=== PATIENT | female | born 1950 ===

== ENCOUNTER → 2017-11-16 | Outpatient (CLI) | payer MEDICARE, BC ==
[~2017-11-16] MED LIST: ALBU90OI INH; AMLO5 PO; AZIT250 PO; CALTRATE; CHOL10002 PO; FISH1000 PO; FLUT220OIA; GEMF600; HYDMOR2; HYDR1TAB94 PO; LORA10 PO; LOSA50 PO; LOSARTAN POTAS100 MG PO; LOVA20 PO; LOVA40 PO; MEDR10; MULVITMINF; NAPR375 PO; OMEP20ER PO; OSEL75CA; OSEL75CA PO; PRED20 PO
== END ==
LOC: LAB 16:10 → LAB SHORT 16:10
DX: E11.9 Type 2 diabetes mellitus without complications (principal)
CPT/HCPCS: 82043

== ENCOUNTER 2019-03-23 05:53 | Day surgery (SDC) | payer MEDICARE, BC ==
[~2019-03-23] VITALS: Ht 152.4 cm; Wt 78.3 kg
[~2019-03-23 05:53] MED LIST changes: +ACET500 PO; +ATOR80 PO; +CENTRUM SILVER1 EAC2 PO; +Diclofenac Sod2.5 ML TOP; +FISH OIL 1,0001 EAC1 PO; -FISH1000 PO; +Loratadine10 MG PO; +METF500 PO; -MULVITMINF; +VIT1CAPS12 PO
--- NOTE | 2019-03-23 06:42 | NUR ---
PT ADMITTED TO [facility]. AGREES WITH PLANNED SURGERY. LUNG SOUNDS CLEAR. PT CONFIRMS 5 DAYS OF CHLORAHEXADINE SHOWER AND NOSE SWAB.
--- NOTE | 2019-03-23 06:50 | NUR ---
NOZIN TO NARE BILATERALLY.
--- NOTE | 2019-03-23 08:33 | NUR ---
03/23/19 0833 Alonso Toth SPINAL ATTEMPTED PER DR. GAXIOLA W/O SUCCESS. GENERAL ANESTHESIA USED FOR PROCEDURE.
--- NOTE | 2019-03-23 17:54 | NUR ---
HAYES HAS HAD DIFFICULTIES WITH N/V. ALL THREE OF HER ANTIEMETICS WERE GIVEN, SHE HAS BEEN SOMNOLENT BUT AROUSEABLE SINCE THE ADMINISTRATION OF PHENERGAN. INCENTIVE SPIROMETER GIVEN, EDUCATED ON USE AND HAYES DEMONSTRATED USE. AT BEDSIDE WHO IS ATTENTIVE AND HELPFUL. ATTEMPTED TO WEAN HER OFF OF O2 X 3, SATS DROPPED TO 80'S. O2 AT 2 LPM VIA NASAL CANNULA. RAHEL, PAS AND POLAR PACK IN PLACE. SPOT CHECKED BLOOD SUGAR DUE TO EMESIS, 130. PAIN 2/10. SITTING COMFORTABLY IN CHAIR WITH CALL LIGHT IN REACH.
[2019-03-24 04:08] LABS: BASOPHILS ABSOLUTE AUTO 0.03 K/mm3 (0.00-0.23); BASOPHILS PERCENT AUTO 0 % (0-2); EOSINOPHILS ABSOLUTE AUTO 0.09 K/mm3 (0.00-0.68); EOSINOPHILS PERCENT AUTO 1 % (0-6); Hematocrit 32.3 % (33.0-51.0); Hemoglobin 10.2 g/dL (11.5-16.0); IMMATURE GRAN ABSOLUTE AUTO 0.01 K/mm3 (0.00-0.10); IMMATURE GRAN PERCENT AUTO 0 % (0-1); LYMPHOCYTES ABSOLUTE AUTO 1.32 K/mm3 (0.84-5.20); LYMPHOCYTES PERCENT AUTO 20 % (21-46); MONOCYTES ABSOLUTE AUTO 0.61 K/mm3 (0.16-1.47); MONOCYTES PERCENT AUTO 9 % (4-13); Mean Corpuscular HGB Conc 31.6 g/dL (31.5-36.5); Mean Platelet Volume 10.5 fL (9.1-12.4); NEUTROPHILS ABSOLUTE AUTO 4.67 K/mm3 (1.96-9.15); NEUTROPHILS PERCENT AUTO 70 % (41-73); Platelet Count 190 K/mm3 (150-400); RDW Coefficient Variation 12.9 % (11.7-14.2); RDW Standard Deviation 45.9 fL (35.1-46.3); Red Blood Cell Count 3.29 M/mm3 (3.80-5.20); White Blood Cell Count 6.73 K/mm3 (4.00-11.30)
[2019-03-24 04:09] LABS: Mean Corpuscular Volume 98 fL (80-100)
[2019-03-24 04:36] LABS: Anion Gap 5 mmol/L (6-16); Blood Urea Nitrogen 20 mg/dL (8-24); Bun/Creatinine Ratio 24.2 (12.0-20.0); CO2, Blood 29 mmol/L (21-32); Calcium, Blood 7.8 mg/dL (8.5-10.1); Chloride, Blood 106 mmol/L (98-108); Creatinine, Blood 0.83 mg/dL (0.40-1.00); Glomerular Filtration Rate >60 (60-); Glucose, Blood 149 mg/dL (70-99); Magnesium, Blood 1.9 mg/dL (1.6-2.4); Potassium, Blood 4.1 mmol/L (3.5-5.5); Sodium, Blood 140 mmol/L (136-145)
--- NOTE | 2019-03-24 06:20 | NUR ---
PT HAS BEEN STABLE THIS SHIFT. PAIN CONTROLLED WITH PRN AND SCHEDULED MEDS. PT UP WITH MIN ASSIST TO AMBULATE AND SIT IN CHAIR. PT VOIDING WELL, SL IV. PT HAS HAD NO FURTHER NAUSEA/EMESIS. WEANED TO RA. PAS/TEDS/POLAR PACK IN PLACE. SOCORRO WRAP CDI. PLAN TO DC HOME AFTER WORKS WITH THERAPY. USES CALL LIGHT APPROPRIATELY.
[2019-03-24] MEDS ORDERED: ASPI325 PO (10:10)
[2019-03-24] MEDS ORDERED: ROXICODONE5 MG PO (10:11)
[2019-03-24] MEDS ORDERED: PROM25 PO (10:11)
--- NOTE | 2019-03-24 14:55 | NUR ---
Patient up to Ambulate independently. Gait steady. Discharge instructions reviewed with patient. Patient verbalizes understanding. Copy given to patient to take home. Dressing to procedure site clean, dry, intact with no visible drainage, swelling, erythema or bruising noted. Patient States Post-Procedure ride home has been arranged. Discharged via wheelchair to private car for ride home. Prescription for antibiotic sent with pt. IV D/C'd. All personal belonging sent home with pt.
== END 2019-03-24 15:01 | disposition home or self-care (01) ==
LOC: ORSCMMR 05:53 → ORD 07:30 → SURS 11:39 → ORSCMMR 03-24 15:01
PROVIDERS: Orthopaedic Surgery
PROC: 8E0YXBZ Computer Assisted Procedure of Lower Extremity (ICD-10-PCS; principal; 2019-03-23 07:30)
PROC: 0SRD0J9 Replacement of Left Knee Joint with Synthetic Substitute, Cemented, Open Approach (ICD-10-PCS; principal; 2019-03-23 07:30)
DX: M17.12 Unilateral primary osteoarthritis, left knee (principal); I10 Essential (primary) hypertension; E11.9 Type 2 diabetes mellitus without complications; J45.909 Unspecified asthma, uncomplicated; E66.9 Obesity, unspecified; Z68.33 Body mass index [BMI] 33.0-33.9, adult; Z79.899 Other long term (current) drug therapy
CPT/HCPCS: 36415; 73560-LT; 80048; 82947; 83735; 85025; 88300; 97110; 97116; 97162; 97530; C1713; C1776; J0171; J0735; J1885; J2250; J2370; J2405; J2550; J2704; J2765; J2795; J3010; J3370; J7120

== ENCOUNTER 2021-09-11 16:27 | Observation (INO) | payer MEDICARE, BC ==
[~2021-09-11] VITALS: Ht 154.9 cm; Wt 82.2 kg
[~2021-09-11 16:27] MED LIST changes: +ASPI325 PO; +PROM25 PO; +ROXICODONE5 MG PO
[2021-09-11] MEDS ORDERED: ZYRTEC10 M2 PO (16:51)
[2021-09-11 17:06] LABS: BASOPHILS ABSOLUTE AUTO 0.07 K/mm3 (0.00-0.23); BASOPHILS PERCENT AUTO 1 % (0-2); EOSINOPHILS ABSOLUTE AUTO 0.16 K/mm3 (0.00-0.68); EOSINOPHILS PERCENT AUTO 2 % (0-6); Hematocrit 30.2 % (33.0-51.0); Hemoglobin 8.7 g/dL (11.5-16.0); IMMATURE GRAN ABSOLUTE AUTO 0.02 K/mm3 (0.00-0.10); IMMATURE GRAN PERCENT AUTO 0 % (0-1); LYMPHOCYTES ABSOLUTE AUTO 3.07 K/mm3 (0.84-5.20); LYMPHOCYTES PERCENT AUTO 38 % (21-46); MONOCYTES PERCENT AUTO 10 % (4-13); Mean Corpuscular HGB 23.4 pg (26.0-34.0); Mean Corpuscular HGB Conc 28.8 g/dL (31.5-36.5); Mean Corpuscular Volume 81 fL (80-100); Mean Platelet Volume 10.5 fL (9.1-12.4); NEUTROPHILS ABSOLUTE AUTO 3.94 K/mm3 (1.96-9.15); NEUTROPHILS PERCENT AUTO 49 % (41-73); Platelet Count 332 K/mm3 (150-400); RDW Coefficient Variation 18.3 % (11.7-14.2); RDW Standard Deviation 53.7 fL (35.1-46.3); Red Blood Cell Count 3.72 M/mm3 (3.80-5.20); White Blood Cell Count 8.06 K/mm3 (4.00-11.30)
[2021-09-11 17:23] LABS: International Normalized Ratio 0.96; Prothrombin Time Results 10.1 Sec (9.7-11.5)
[2021-09-11 17:28] LABS: Alanine Aminotransfer (ALT/SGP 34 U/L (12-78); Albumin, Blood 3.8 g/dL (3.4-5.0); Albumin/Globulin Ratio 1.1 (0.8-1.8); Alk Phos 106 U/L (50-136); Anion Gap 7 mmol/L (6-16); Aspartate Aminotrans (AST/SGOT 27 U/L (12-37); Bilirubin, Total 1.3 mg/dL (0.1-1.0); Blood Urea Nitrogen 18 mg/dL (8-24); Bun/Creatinine Ratio 23.9 (12.0-20.0); CO2, Blood 24 mmol/L (21-32); Chloride, Blood 107 mmol/L (98-108); Creatinine, Blood 0.75 mg/dL (0.40-1.00); Globulin, Blood 3.4 g/dL (2.2-4.0); Glomerular Filtration Rate >60 (60-); Glucose, Blood 149 mg/dL (70-99); Potassium, Blood 3.9 mmol/L (3.5-5.5); Sodium, Blood 138 mmol/L (136-145); Total Protein, Blood 7.2 g/dL (6.4-8.2)
[2021-09-11 21:35] LABS: CHOL/HDL RATIO 1.8; Cholesterol 117 mg/dL (50-200); HDL Cholesterol 66 mg/dL (>39); LDL/HDL RATIO 0.6; Low Density Lipoprotein Chol 38 mg/dL (0-110); Triglycerides 66 mg/dL (30-160); Very Low Density Lipoprot Chol 13 mg/dL (6-32)
[2021-09-11 22:45] LABS: Percent Saturation 4.1 % (15.0-50.0)
--- NOTE | 2021-09-11 23:33 | NUR ---
PATIENT IS A NEW ADMIT FROM THE ED. SELF TRANSFER FROM [facility] TO BED. AXOX 4 AND INDEPENDENT IN ROOM. ON ROOM AIR. DENIES CHEST PAIN, SOB, AND N/V. REPORTS RIGHT EYE: UPPER LEFT FIELD OF VIEW VISION LOSS. NO OTHER DEFICIT NOTED. REPORT SHE DOES AEROBIC SWIMMING TWICE A WEEK AND SPOUSE DOES CARDIO AND LIFTS WEIGHTS. ORIENTED TO ROOM AND CALL LIGHT SYSTEM. SPOUSE CALLED TO CHECK IN AFTER LEAVING ED. PATIENT REPORTS SHE WANTS TO SLEEP AFTER ASSESSMENT. WARM BLANKET PROVIDED. CALL LIGHT IN REACH.
--- NOTE | 2021-09-12 03:15 | NUR ---
SHIFT SUMMARY PATIENT HAD NO ACUTE CHANGES OBSERVED. AXOX 4 AND INDEPENDENT IN ROOM. VSS/AFEBRILE. DENIES PAIN, SOB AND N/V. PIV REMAINS INTACT. MRI FORM FILLED OUT BY ED RN FOR MRI TODAY. RIGHT EYE VISION DEFICIT REMAINED THE SAME. NO OTHER NEURO CHANGES NOTED. COOPERATIVE WITH CARE. CALL LIGHT IN REACH. BED IN LOWEST POSITION. WILL CONTINUE TO MONITOR UNTIL DAY SHIFT NURSE ASSUMES CARE.
[2021-09-12 05:52] LABS: BASOPHILS ABSOLUTE AUTO 0.04 K/mm3 (0.00-0.23); BASOPHILS PERCENT AUTO 1 % (0-2); EOSINOPHILS ABSOLUTE AUTO 0.17 K/mm3 (0.00-0.68); EOSINOPHILS PERCENT AUTO 4 % (0-6); Hematocrit 28.7 % (33.0-51.0); Hemoglobin 8.3 g/dL (11.5-16.0); IMMATURE GRAN ABSOLUTE AUTO 0.01 K/mm3 (0.00-0.10); IMMATURE GRAN PERCENT AUTO 0 % (0-1); LYMPHOCYTES ABSOLUTE AUTO 1.86 K/mm3 (0.84-5.20); LYMPHOCYTES PERCENT AUTO 41 % (21-46); MONOCYTES ABSOLUTE AUTO 0.51 K/mm3 (0.16-1.47); MONOCYTES PERCENT AUTO 11 % (4-13); Mean Corpuscular HGB 23.4 pg (26.0-34.0); Mean Corpuscular HGB Conc 28.9 g/dL (31.5-36.5); Mean Corpuscular Volume 81 fL (80-100); Mean Platelet Volume 10.8 fL (9.1-12.4); NEUTROPHILS ABSOLUTE AUTO 1.92 K/mm3 (1.96-9.15); NEUTROPHILS PERCENT AUTO 43 % (41-73); Platelet Count 329 K/mm3 (150-400); RDW Coefficient Variation 18.1 % (11.7-14.2); Red Blood Cell Count 3.55 M/mm3 (3.80-5.20); White Blood Cell Count 4.51 K/mm3 (4.00-11.30)
--- NOTE | 2021-09-12 14:50 | NUR ---
[facility]ED [facility]- PT HAS DISCHARGE ORDERS, HAS ORDERED A ZIOPATCH FOR 15 DAYS. THEY ARE AWARE OF THE ORDER AND WILL SEND SOMEONE TO PLACE THE PATCH.
[2021-09-12] MEDS ORDERED: CLOP75 PO (15:51)
[2021-09-12] MEDS ORDERED: PANT20 PO (15:55)
--- NOTE | 2021-09-12 16:28 | NUR ---
SHIFT/DISCHARGE NOTE MS JENKINS HAS BEEN INDEPENDENT TODAY, WALKING LAPS AROUND THE UNIT WITH HER . ORIENTATEDX4, NO CONFUSION. VISION UNCHANGED WITH MONTES BLURRED VISUAL AREA TO LEFT UPPER ASPECT OF VISUAL FIELD FROM RIGHT EYE. HAS CHRONIC TRIGGER FINGER ISSUES ON RIGHT HAND, SLIGHT WEAKNESS IN HER RIGHT HAND IS CHRONIC. SHE IS AWAITING A RIGHT KNEE REPLACEMENT SO SLIGHT WEAKNESS TO RIGHT LEG IS CHRONIC. STEADY GAIT DESPITE KNEE JOINT ISSUES. NO HEADACHE, NO NECK PAIN, HAS GENERAL ARTHRITIS PAIN. MS JENKINS WAS DISCHARGED HOME TODAY. PIV REMOVED BY RN. HOME DECKHAND OYSTER DREDGE APPLIED. DISCHARGE INSTRUCTIONS INCLUDING NEW MEDICATIONS REVIEWED WITH PT AND WRITTEN AND VERBALLY. PT VERBALISED UNDERSTANDING OF DISCHARGE INSTRUCTIONS AND ALL QUESTIONS ANSWERED.SHE QUESTIONED WHY THE ZERTEC WAS DISCONTINUED - I CALLED AND SPOKE TO DR MCKAY WHO SAID THAT IT IS OK FOR HER TO CONTINUE TO TAKE ZERTEC. PT WAS ESCORTED AMBULATORY OUT OF [facility] FOR DISCHARGE HOME.
[2021-09-12] MEDS ORDERED: ZYRTEC10 M4 PO (17:18)
== END 2021-09-12 16:24 | disposition home or self-care (01) ==
LOC: ER 16:27 → MEDS 16:28
PROVIDERS: Physician Assistant; ADMIT Family Medicine
DX: H34.231 Retinal artery branch occlusion, right eye (principal); E11.9 Type 2 diabetes mellitus without complications; K21.9 Gastro-esophageal reflux disease without esophagitis; I10 Essential (primary) hypertension; E78.5 Hyperlipidemia, unspecified; Z79.84 Long term (current) use of oral hypoglycemic drugs; Z88.1 Allergy status to other antibiotic agents; Z88.5 Allergy status to narcotic agent; Z88.8 Allergy status to other drugs, medicaments and biological substances
CPT/HCPCS: 36415; 70450; 70496; 70498; 70551; 80053; 80061; 82607; 82728; 82746; 82947; 83540; 83550; 85025; 85610; 85651; 86140; 90686; 93005; 93010; 93246; 93306; 96372; 99285-25; A9270; G0378; J1650; Q9967

== ENCOUNTER 2021-12-10 09:43 | Day surgery (SDC) | payer MEDICARE, BC ==
[~2021-12-10] VITALS: Ht 154.9 cm; Wt 77.3 kg
[~2021-12-10 09:43] MED LIST changes: +CLOP75 PO; +PANT20 PO; +ZYRTEC10 M2 PO; +ZYRTEC10 M4 PO
[2021-12-10] MEDS ORDERED: Vitamin C100 M1 (10:57)
[2021-12-10] MEDS ORDERED: IRON18 MG (10:57)
== END 2021-12-10 12:47 | disposition home or self-care (01) ==
LOC: ORSCSDS 09:43
PROVIDERS: Surgery
PROC: 0DB78ZX Excision of Stomach, Pylorus, Via Natural or Artificial Opening Endoscopic, Diagnostic (ICD-10-PCS; principal; 2021-12-10 11:00)
PROC: 0DJD8ZZ Inspection of Lower Intestinal Tract, Via Natural or Artificial Opening Endoscopic (ICD-10-PCS; principal; 2021-12-10 11:00)
DX: D50.9 Iron deficiency anemia, unspecified (principal); K29.70 Gastritis, unspecified, without bleeding; K57.30 Diverticulosis of large intestine without perforation or abscess without bleeding; K44.9 Diaphragmatic hernia without obstruction or gangrene; E11.9 Type 2 diabetes mellitus without complications; I10 Essential (primary) hypertension; J45.909 Unspecified asthma, uncomplicated; Z79.02 Long term (current) use of antithrombotics/antiplatelets; Z79.84 Long term (current) use of oral hypoglycemic drugs; Z85.850 Personal history of malignant neoplasm of thyroid; Z79.899 Other long term (current) drug therapy
CPT/HCPCS: 82947; 88305; 88342; J2704; J7120

== ENCOUNTER → 2022-10-05 | Outpatient (CLI) | payer MEDICARE, BC ==
[~2022-10-05] MED LIST changes: +IRON18 MG; +Vitamin C100 M1
[2022-10-06 12:04] LABS: Stool Occult Bld Immuno 1 Negative (NEGATIVE); Stool Occult Bld Immuno 2 Negative (NEGATIVE)
== END | disposition home or self-care (01) ==
LOC: LAB 08:40 → LAB SHORT 08:40
PROVIDERS: Physician Assistant Medical
DX: D50.8 Other iron deficiency anemias (principal)
CPT/HCPCS: 82274

== ENCOUNTER → 2023-04-29 | Outpatient (CLI) | payer MEDICARE, BC | LOC: LAB 12:06 → LAB SHORT 12:06 | DX: L82.0 Inflamed seborrheic keratosis (principal) | CPT/HCPCS: 88305 ==

== ENCOUNTER → 2023-08-27 | Outpatient (CLI) | payer MEDICARE, BC | LOC: LAB 16:17 → LAB SHORT 16:17 | DX: N39.0 Urinary tract infection, site not specified (principal) | CPT/HCPCS: 87086 ==

== ENCOUNTER 2024-04-20 08:22 | Day surgery (SDC) | payer MEDICARE, BC ==
[2024-04-20] VITALS (16 sets, daily range): BP systolic 103–139; BP diastolic 53–87
[~2024-04-20] VITALS: Ht 152.4 cm; Wt 75.4 kg
[~2024-04-20 08:22] MED LIST changes: +CALCIUM W/D3 PO; +FERROUS FUMARAT89 M1 PO; +Flonase 0.05% N16 GM; +Midazolam HCl 1MG / ML 2ML Vial ONE; +VITAMIN D325 MC3 PO; +propofoL 40 ML IV ONE
[2024-04-20] MEDS ORDERED: Ropivacaine 0.5% HCl/Pf 123.125 MG,EPINEPHrine HCL 0.25 MG,Ketorolac Tromethamine 15 MG... INFIL SCH (08:35)
[2024-04-20] MEDS ORDERED: CeFAZolin Sodium 2,000 MG in NS 100 ML IV SCH ×2 (08:35→19:00)
[2024-04-20] MEDS ORDERED: Lactated Ringer's 1,000 ML IV SCH (08:35)
[2024-04-20] MEDS ORDERED: OxyCODONE HCL 10 MG TABCR PO SCH (08:35)
[2024-04-20] MEDS ORDERED: Chlorhexidine Mouth Care 15 ML UDC MT SCH (08:35)
[2024-04-20] MEDS ORDERED: Vancomycin HCL 1,000 MG in NS 250 ML IV SCH ×2 (08:35→22:00)
[2024-04-20] MEDS ORDERED: Tranexamic Acid 100 ML IV SCH (08:45)
[2024-04-20] MEDS ORDERED: MUPIROCIN110 (08:57)
[2024-04-20] MEDS ORDERED: Acetaminophen 500 MG Tab PO SCH ×2 (09:25→16:00)
[2024-04-20] MEDS ORDERED: Ipratropium/Albuterol SulF 2.5-0.5MG/3 ML Amp INH ONE (09:30)
--- NOTE | 2024-04-20 09:32 | NUR ---
Ambulatory in Day SurgeryPre-Op teaching done. Pt verbalizes understanding. History, Chart, Medications and Allergies reviewed before start of procedure.Patient confirms NPO status and agrees with scheduled surgery. Patient reports completing Chlorhexadine shower X2 prior to admission to hospital.
[2024-04-20] MEDS ORDERED: Phenylephrine HCl 100 MCG/ML-NS 10MLSYR (1MG/10ML) ONE ×2 (10:53→12:29)
[2024-04-20] MEDS ORDERED: Vancomycin HCl 1000 MG ADDvantage ONE (10:55)
[2024-04-20] MEDS ORDERED: OxyCODONE HCL 5 MG TAB PO PRN ×2 (11:10)
[2024-04-20] MEDS ORDERED: Metoclopramide HCl 5MG / ML 2ML Vial IV PRN (11:10)
[2024-04-20] MEDS ORDERED: Magnesium Hydroxide Conc 10 ML UDC PO PRN (11:10)
[2024-04-20] MEDS ORDERED: HYDROmorphone HCl/Pf 1MG SYR IV PRN (11:15)
[2024-04-20] MEDS ORDERED: FLU VACC TS2024-25(6MOS UP)/PF 45 MCG/0.5 ML SYRINGE IM SCH (11:15)
[2024-04-20] MEDS ORDERED: Ondansetron HCl 2 MG / ML 2ML Vial IV PRN (11:15)
[2024-04-20] MEDS ORDERED: DiphenhydrAMINE HCL 25 MG Cap PO PRN (11:20)
[2024-04-20] MEDS ORDERED: NS 1,000 ML IV SCH (11:20)
[2024-04-20] MEDS ORDERED: Promethazine HCl 25 MG Tab PO PRN (11:20)
[2024-04-20] MEDS ORDERED: Bisacodyl 10 MG Supp PR PRN (11:20)
[2024-04-20] MEDS ORDERED: Fluticasone 0.05% Nasal Spray PRN (11:25)
[2024-04-20] MEDS ORDERED: Insulin Regular 100 UNIT/ML 10ML Vial SC SCH (11:30)
[2024-04-20] MEDS ORDERED: ePHEDrine Sulfate 50 MG/ML 1ML Injection ONE (11:42)
--- NOTE | 2024-04-20 11:53 | NUR ---
04/20/24 1153 Lyric West SPINAL BLOCK COMPLETED BY UPON ENTRY TO OR.
[2024-04-20] MEDS ORDERED: propofoL 40 ML IV ONE (12:29)
[2024-04-20] MEDS ORDERED: Ketorolac Tromethamine 30mg Vial ONE (13:24)
[2024-04-20] MEDS ORDERED: FentaNYL Citrate 50 MCG/ML 2 ML Injection ONE (13:24)
--- NOTE | 2024-04-20 13:59 | NUR ---
PT ARRIVED TO UNIT FROM PACU A&OX4. FAMILY MEMBER BEDSIDE. ABLE TO WIGGLE TOES AND FEEL TOUCH TO FOOT. RATES PAIN 5-6/10 ON PAIN SCALE. LCA. RESPIRATIONS E/U ON RA. HRR. SOCORRO WRAP TO R KNEE CDI. POLAR PACK IN PLACE. CALL LIGHT IN REACH. ORIENTED TO USE OF CALL LIGHT AND FALL PRECAUTIONS.
[2024-04-20] MEDS ORDERED: Ferrous Gluconate 325 MG Tablet PO SCH (17:00)
[2024-04-20] MEDS ORDERED: Loratadine 10 MG Tab PO SCH (18:00)
[2024-04-20] MEDS ORDERED: Atorvastatin 40 MG Tab PO SCH (18:00)
[2024-04-20] MEDS ORDERED: MetFORMIN HCl 500 mg PO SCH (18:00)
[2024-04-20] MEDS ORDERED: Ketorolac Tromethamine 15mg Vial IV SCH (18:00)
--- NOTE | 2024-04-20 18:44 | NUR ---
SUMMARY PT HAS BEEN UP TO VOID, VSS, TOLERATING PO. PAIN TOLERABLE, RATING 3/10. POLAR PACK IN PLACE. CALL LIGHT IN REACH. IV ABX INFUSING PER ORDERS AT THIS TIME.
[2024-04-20] MEDS ORDERED: Docusate Sodium 100 MG Cap PO SCH (21:00)
[2024-04-21 04:21] VITALS: BP 118/58
[2024-04-21 05:14] LABS: BASOPHILS ABSOLUTE AUTO 0.02 K/mm3 (0.00-0.23); BASOPHILS PERCENT AUTO 0 % (0-2); EOSINOPHILS ABSOLUTE AUTO 0.09 K/mm3 (0.00-0.68); EOSINOPHILS PERCENT AUTO 1 % (0-6); Hematocrit 37.5 % (33.0-51.0); Hemoglobin 12.2 g/dL (11.5-16.0); IMMATURE GRAN ABSOLUTE AUTO 0.02 K/mm3 (0.00-0.10); IMMATURE GRAN PERCENT AUTO 0 % (0-1); LYMPHOCYTES ABSOLUTE AUTO 1.65 K/mm3 (0.84-5.20); LYMPHOCYTES PERCENT AUTO 21 % (21-46); MONOCYTES ABSOLUTE AUTO 0.72 K/mm3 (0.16-1.47); MONOCYTES PERCENT AUTO 9 % (4-13); Mean Corpuscular HGB 31.9 pg (26.0-34.0); Mean Corpuscular HGB Conc 32.5 g/dL (31.5-36.5); Mean Corpuscular Volume 98 fL (80-100); Mean Platelet Volume 10.7 fL (9.1-12.4); NEUTROPHILS PERCENT AUTO 67 % (41-73); Platelet Count 215 K/mm3 (150-400); RDW Coefficient Variation 12.6 % (11.7-14.2); RDW Standard Deviation 44.9 fL (35.1-46.3); Red Blood Cell Count 3.83 M/mm3 (3.80-5.20)
--- NOTE | 2024-04-21 05:17 | NUR ---
SHIFT SUMMARY POD 1 R TKA PT ABLE TO REST DURING THE SHIFT. PAIN MANAGED PER EMAR. TOLERATING PO INTAKE. VOIDING. PT WALKED TO BATHROOM W/ 1P ASST FWW AND GB. PT DRESSED IN BED, WHILE ATTEMPT TO GET INTO CHAIR THIS AM. SOCORRO WRAP TO KNEE IS C/D/I. VSS. NO OTHER CONCERNS AT THIS TIME, CALL LIGHT WITHIN REACH.
[2024-04-21 05:37] LABS: Bun/Creatinine Ratio 21.3 (12.0-20.0); Calcium, Blood 8.3 mg/dL (8.5-10.1); Creatinine, Blood 0.75 mg/dL (0.40-1.00); Magnesium, Blood 1.8 mg/dL (1.6-2.4); Potassium, Blood 3.8 mmol/L (3.5-5.5)
[2024-04-21] MEDS ORDERED: Pantoprazole Sodium 20 MG Tab PO SCH (06:00)
[2024-04-21 07:26] VITALS: BP 140/68
[2024-04-21] MEDS ORDERED: LINE600 PO (08:44)
[2024-04-21] MEDS ORDERED: OXAYDO5 M1 PO (08:45)
[2024-04-21] MEDS ORDERED: PROM25 PO (08:46)
[2024-04-21] MEDS ORDERED: Multivitamins/Minerals 1 Tab PO SCH (09:00)
[2024-04-21] MEDS ORDERED: Losartan Potassium 50 MG Tab PO SCH (09:00)
[2024-04-21] MEDS ORDERED: Cholecalciferol 1000 Unit Tablet (=25MCG) PO SCH (09:00)
[2024-04-21] MEDS ORDERED: Linezolid 600 MG Tab PO SCH (09:00)
[2024-04-21] MEDS ORDERED: AmLODIPine Besylate 5 MG Tab PO SCH (09:00)
[2024-04-21 10:17] VITALS: BP 139/69
--- NOTE | 2024-04-21 10:40 | NUR ---
DISCHARGED PT CLEARED THERAPY. PAIN CONTROLLED ON PO PAIN MEDS. DC INSTRUCTIONS REVIEWED W/PT BY KVNG Flores RN. VSS. PT LEFT UNIT IN WC W/POSSESSIONS, DC PAPERWORK, POLAR PACK, AND AQUACEL DRESSINGS, ACCOMPANIED BY SPOUSE.
[2024-04-21] MEDS ORDERED: Clopidogrel Bisulfate 75 MG Tab PO SCH (17:00)
== END 2024-04-21 10:30 | disposition home or self-care (01) ==
LOC: ORSCMMR 08:22 → ORD 10:00 → ORSCMMR 11:00 → ORD 11:00 → SURS 13:50 → ORSCMMR 04-21 10:30
PROVIDERS: Orthopaedic Surgery
PROC: 0SRC0JA Replacement of Right Knee Joint with Synthetic Substitute, Uncemented, Open Approach (ICD-10-PCS; principal; 2024-04-20 11:00)
DX: M17.11 Unilateral primary osteoarthritis, right knee (principal); Z96.652 Presence of left artificial knee joint; I10 Essential (primary) hypertension; J45.909 Unspecified asthma, uncomplicated; E80.4 Gilbert syndrome; E83.52 Hypercalcemia; E11.9 Type 2 diabetes mellitus without complications; Z79.84 Long term (current) use of oral hypoglycemic drugs; Z79.899 Other long term (current) drug therapy; Z85.850 Personal history of malignant neoplasm of thyroid
CPT/HCPCS: 36415; 73560-RT; 80048; 82947; 83735; 85025; 97110; 97162; 97530; A9270; C1713; C1776; J0171; J0690; J0735; J1885; J2250; J2371; J2405; J2470; J2704; J2765; J2795; J3010; J3370; J7050; J7120